=== PATIENT | female | born 1995 | race American Indian/Alaskan Native ===

== ENCOUNTER 2016-04-03 09:48 | Emergency (ER) | payer BC ==
[2016-04-03 11:57] VITALS: BP 114/75
[2016-04-03 14:27] LABS: Bacteria,Urine 1+ /HPF (Negative); Mucus,Urine FEW /HPF; WBC,Urine < 1.0 /HPF (0.0-6.0)
[2016-04-03 14:30] LABS: Bilirubin,Urine NEG (Negative); Blood,Urine NEG (Negative); Ketones,Urine NEG (Negative); Leukocyte Esterase,Urine NEG (Negative); Nitrite,Urine NEG (Negative); Urobilinogen,Urine < 2.0 mg/dL (<2.0)
--- NOTE | 2016-04-03 14:44 | Emergency Department Report ---
HPI - General Chief Complaint: Upper Respiratory Infection Time Seen by Provider: 04/03/16 14:00 - HPI HPI: 21-year-old -[place] female comes in with a past medical history of nothing complains of wheezing, cough, burning in her lower abdomen and back pain 3 days. Patient admits to nausea no vomiting she does admit to having unprotected sex earlier this month with male boyfriend. She is 1 para 1. She admits to fever and chills and wheezing and denies any dysuria. She does reports she has an appointment for general practitioner tomorrow. ED Past Medical Hx - Past Medical History Previous Medical History?: No Additional medical history: low iron - Surgical History Additional Surgical History: - Social History Smoking Status: Never Smoker Substance Use Type: None - Medications Home Medications: Home Medications Medication Instructions Recorded Confirmed Last Taken Type medroxyPROGESTERone ACETA (NF) 400 mg IM 12/06/12 12/06/12 Unknown History [Depo-Provera (Nf)] DULoxetine [Cymbalta] 30 mg PO QDAY #25 capsule 09/16/14 Unknown Rx LORazepam [Ativan] 1 mg PO DAILY PRN #15 tab 09/16/14 Unknown Rx ED Review of Systems ROS: Stated complaint: LOWER ABD PAIN/BACK PAIN/COUGH W/CHEST PAIN Other details as noted in HPI Physical Exam - Physical Exam Vital Signs: Vital Signs 04/03/16 11:54 Temperature 98.7 F Pulse Rate 81 Respiratory 16 Rate Blood Pressure 114/75 O2 Sat by Pulse 100 Oximetry Physical Exam: GENERAL: Alert and oriented x3, no apparent distress, Normal Gait, atraumatic. HEAD: Head is normocephalic and a-traumatic. EYES: Extra ocular muscles are intact. Pupils are equal, round, and reactive to light and accommodation. EARS: symetrical, atraumatic, non tender, ear canal clear and moderate cerumen, tympanic membrance non inflamed. gross auditory nml bilaterally. NOSE: Nose symetrical, Nontender,Nares appeared normal. MOUTH:Mouth is well hydrated and without lesions. Tonsils nonerythematous or swollen, Uvula midline, Tongue not elevated. Mucous membranes are moist. Posterior pharynx clear, no exudate or lesions. Patent airways. NECK: Supple. Non edematous, No carotid bruits. No lymphadenopathy or thyromegaly. LUNGS: Symetrical with respiration, No wheezing, no rales or crackles, CTAB. HEART: S1, S2 present, regular rate and rhythm without murmur, no rubs, no gallops. ABDOMEN: No organomegaly was noted,Positive bowel sounds, soft, and non- distended. . Nontender to palpation on all Quadrants, NO CVA tenderness. GENITOURINARY: External genitalia without erythema, exudate or discharge.Vaginal vault is without discharge. Cervix is of normal color without lesion. Cervical os is closed. No bleeding noted. Uterus is noted to be of normal size and nontender. No cervical motion tenderness. No masses are palpated. The adnexa are without masses or tenderness. EXTREMITIES/MUSCULOSKELETAL: No cyanosis, clubbing, rash, lesions or edema. Full ROM bilaterally. UE/LE Pulses 2+ bilaterally. LE and UE 5+ strength bilaterally NEUROLOGIC: No focal Deficit, Cranial nerves II through XII are grossly intact. No loss of sensation, No facial droop, Negative rhomberg. PSYCHIATRIC: Mood is congruent with affect, denies suicidal or homicidal ideations. SKIN: Warm and dry, No lesions, No ulceration or induration present ED Course Vital Signs 04/03/16 11:54 Temperature 98.7 F Pulse Rate 81 Respiratory 16 Rate Blood Pressure 114/75 O2 Sat by Pulse 100 Oximetry ED Medical Decision Making - Medical Decision Making Patient's been evaluated with this provider fast. CBC BMP urinalysis urine culture urine GC chlamydia. Patient eloped. This provider one to the waiting area she did not answer. Critical care attestation.: If time is entered above; I have spent that time in minutes in the direct care of this critically ill patient, excluding procedure time. ED Disposition Clinical Impression: Back pain Disposition: ELOPED Is pt being admited?: No Does the pt Need Aspirin: No Condition: Stable Referrals: PRIMARY CARE, [Primary Care Provider] - 3-5 Days
[2016-04-03 15:31] LABS: Hematocrit 28.1 % (30.3-42.9); Hemoglobin 8.5 gm/dl (10.1-14.3); Mean Corpuscular HGB Conc 30 % (30-34)
[2016-04-03 15:33] LABS: Mean Corpuscular Hemoglobin 18 pg (28-32); Mean Corpuscular Volume 61 fl (79-97); Platelet Count 189 K/mm3 (140-440)
[2016-04-03 15:45] LABS: Anion Gap 18 mmol/L; BUN/Creatinine Ratio 36.66; Blood Urea Nitrogen 11 mg/dL (7-17); Calcium 8.8 mg/dL (8.4-10.2); Carbon Dioxide 24 mmol/L (22-30); Chloride 100.1 mmol/L (98-107); Glucose 81 mg/dL (65-100); Lipase 45 units/L (13-60); Potassium 4.3 mmol/L (3.6-5.0); Sodium 138 mmol/L (137-145)
== END 2016-04-03 14:00 | disposition left against medical advice (07) ==
LOC: ED 09:48
DX: M54.9 Dorsalgia, unspecified (principal); R06.02 Shortness of breath; R05 Cough; R10.30 Lower abdominal pain, unspecified; R11.2 Nausea with vomiting, unspecified; R50.9 Fever, unspecified; Z98.890 Other specified postprocedural states
CPT/HCPCS: 36415; 80048; 81001; 81025; 83690; 85027; 87086; 87591; 99283